=== PATIENT | female | born 1995 | race Caucasian/White ===

== ENCOUNTER → 2016-12-21 | Outpatient (CLI) | payer MEDICAID ==
--- NOTE | 2016-12-21 15:05 | REP ---
Sonography: History: Supervision of for anatomy. Findings: Scanning through the gravid uterus demonstrates a viable single intrauterine gestation in a cephalic lie. motion is observed and heart rate is recorded at 141 beats per minute. A posterior grade 0 placenta is seen without evidence of previa or abruption. Closed cervical length measured transabdominally is 4.1 cm. No extrauterine abnormalities observed. anatomic images of the face suggests the possibility of a cleft lip. Facial profile view is unremarkable. Right ventricular cardiac outflow tract was less than optimally seen due to position. The following additional anatomic structures are identified and felt to be sonographically unremarkable: cranium, choroid plexus, cavum, cerebellum and posterior fossa, lungs, four-chamber heart with left ventricular outflow tract view, diaphragm, left-sided stomach, abdominal wall cord insertion, three-vessel cord, kidneys and bladder, spine, upper and lower extremities. Biometry chart: BPD 4.7 cm = 20 weeks 1 day Head circumference 17.5 cm = 20 weeks 0 days Abdominal circumference 15.0 cm = 20 weeks 2 days Femur length 3.2 cm = 19 weeks 6 days Humeral length 3.1 cm = 20 weeks 1 day Cerebellar diameter 2.1 cm = 20 weeks 0 days HC/AC ratio normal 1.16. Cephalic index normal 0.74. Estimated weight 330 grams, 0 pounds 11 ounces, 55th percentile for 19 weeks 6 days. Impression: 1. Viable single intrauterine gestation at 19 weeks 6 days by today's composite criteria. LALITHA by today's sonography May 11, 2017. 2. Views of the face suggestive of an eccentric defect in the upper lip consistent with cleft lip deformity. Right ventricular outflow tract view was less than optimally seen due to lie. Signed by Adilson Ruiz MD 12/21/2016 04:18 P
== END ==
LOC: M SMT 13:06
PROVIDERS: ATTEND Advanced Practice Midwife
DX: O36.8920 Maternal care for other specified fetal problems, second trimester, not applicable or unspecified (principal); Z36 Encounter for antenatal screening of mother; Z3A.19 19 weeks gestation of pregnancy

== ENCOUNTER → 2017-02-08 | Outpatient (CLI) | payer MEDICAID ==
[~2017-02-08] MED LIST: PRENTAB9 PO; TUMS500C PO
--- NOTE | 2017-02-08 14:53 | REP ---
Clinical: Anatomical evaluation. Comparison: 12/21/2016 . Findings: Examination demonstrates a single live intrauterine in breech presentation. motion is identified by technologist. Placenta is noted posteriorly and grade one without evidence for placenta previa or abruption. Amniotic fluid volume is normal. Cervix measures 4.2 cm in length and appears closed. Nuchal cord cannot be excluded. Gestational age by first US 26 weeks 6 days with LALITHA 05/11/2017 . Gestational age by current measurements 26 weeks 5 days with LALITHA 05/12/2017 . FHR equals 153 beats per minute. Estimated weight 1067 grams ( 57th percentile). Anatomical assessment demonstrates normal structures including cranium, choroid plexus, cavum, cerebellum/posterior fossa, facial features, lungs, four-chamber heart/ventricular outflow tracts, diaphragm, stomach, cord insertion/three-vessel cord, kidneys/bladder, spine, and extremities. Impression: Single live intrauterine in breech presentation. Nuchal cord cannot be excluded. Appropriate interval growth noted. Anatomical assessment is complete and normal. Signed by Miguel Jaeger MD 02/08/2017 02:07 P
[2017-02-08 19:23] LABS: MEAN CORPUSCULAR HEMOGLOBIN 30.8 pg (27.0-33.0); MEAN CORPUSCULAR HGB CONC 35.1 g/dl (32.0-36.5); MEAN CORPUSCULAR VOLUME 87.6 fl (80.0-96.0); RED CELL DISTRIBUTION WIDTH 12.9 % (11.5-14.5); WHITE BLOOD COUNT 11.3 K/mm3 (4.0-10.0)
== END ==
LOC: M SMT 12:59
PROVIDERS: ATTEND Obstetrics & Gynecology
DX: O32.1XX0 Maternal care for breech presentation, not applicable or unspecified (principal); Z36 Encounter for antenatal screening of mother; Z3A.26 26 weeks gestation of pregnancy

== ENCOUNTER → 2017-02-15 | Outpatient (CLI) | payer MEDICAID | LOC: M LAB 08:00 | PROVIDERS: ATTEND Obstetrics & Gynecology | DX: Z34.82 Encounter for supervision of other normal pregnancy, second trimester (principal) ==

== ENCOUNTER → 2017-03-31 | Outpatient (CLI) | payer OTHER ==
[2017-03-31 11:07] LABS: MEAN CORPUSCULAR HEMOGLOBIN 28.9 pg (27.0-33.0); MEAN CORPUSCULAR HGB CONC 33.1 g/dl (32.0-36.5); MEAN CORPUSCULAR VOLUME 87.2 fl (80.0-96.0); PLATELET COUNT, AUTOMATED 255 10^3/uL (150-450); RED CELL DISTRIBUTION WIDTH 13.2 % (11.5-14.5); WHITE BLOOD COUNT 13.1 10^3/uL (4.0-10.0)
[2017-03-31 11:53] LABS: ALT/SGPT 12 U/L (12-78); AST/SGOT 6 U/L (15-37); BILIRUBIN,TOTAL 0.2 MG/DL (0.2-1.0); CREATININE FOR GFR 0.71 MG/DL (0.55-1.02); GLOMERULAR FILTRATION RATE > 60.0 (>60); URIC ACID 3.5 MG/DL (2.6-6.0)
[2017-03-31 12:33] LABS: CREATININE CLEARANCE, URINE 160.2 ML/MIN (75-115); CREATININE, SERUM 0.7 MG/DL (0.6-1.0)
== END ==
LOC: M LAB 10:31
PROVIDERS: ATTEND Advanced Practice Midwife
DX: O16.3 Unspecified maternal hypertension, third trimester (principal); Z3A.00 Weeks of gestation of pregnancy not specified

== ENCOUNTER → 2017-04-01 | Outpatient (REF) | payer OTHER | LOC: M LAB REF 13:07 | PROVIDERS: ATTEND Specialist | DX: O13.3 Gestational [pregnancy-induced] hypertension without significant proteinuria, third trimester (principal) ==

== ENCOUNTER 2017-04-20 21:27 | Outpatient (CLI) | payer OTHER ==
[~2017-04-20] VITALS: Ht 157.5 cm; Wt 84.0 kg
[2017-04-20 21:46] VITALS: BP 136/84
[2017-04-20] MEDS ORDERED: TUMS500C PO (21:54)
[2017-04-20] MEDS ORDERED: PRENTAB9 PO (21:54)
[2017-04-20 22:03] VITALS: BP 116/71
[2017-04-20 22:25] VITALS: BP 120/68
[2017-04-20 22:45] VITALS: BP 107/64
[2017-04-20 23:05] VITALS: BP 109/68
[2017-04-20 23:09] VITALS: BP 136/84
[2017-04-21 00:15] LABS: MEAN CORPUSCULAR HEMOGLOBIN 28.7 pg (27.0-33.0); PLATELET COUNT, AUTOMATED 288 10^3/uL (150-450); RED CELL DISTRIBUTION WIDTH 13.4 % (11.5-14.5); WHITE BLOOD COUNT 16.4 10^3/uL (4.0-10.0)
[2017-04-21 00:24] LABS: ALT/SGPT 13 U/L (12-78); AST/SGOT 9 U/L (7-37); BILIRUBIN,TOTAL 0.2 MG/DL (0.2-1.0); CREATININE FOR GFR 0.73 MG/DL (0.55-1.02); GLOMERULAR FILTRATION RATE > 60.0 (>60)
== END 2017-04-21 00:50 | disposition home or self-care (01) ==
LOC: M LDO 21:27
PROVIDERS: ATTEND Specialist
DX: O26.893 Other specified pregnancy related conditions, third trimester (principal); Z3A.36 36 weeks gestation of pregnancy; R55 Syncope and collapse; O14.03 Mild to moderate pre-eclampsia, third trimester; O13.3 Gestational [pregnancy-induced] hypertension without significant proteinuria, third trimester

== ENCOUNTER 2017-04-22 11:27 | Inpatient (IN) | payer OTHER ==
[~2017-04-22] VITALS: Ht 157.5 cm; Wt 82.2 kg
[2017-04-22] MEDS ORDERED: LACTATED RINGER'S 1000 ML IV STA (11:42)
[2017-04-22] MEDS: LR 1,000 ML IV SCH ×2 (11:42→13:30)
[2017-04-22 11:44] VITALS: BP 149/89
[2017-04-22 12:41] VITALS: BP 122/77
[2017-04-22] MEDS: miSOPROStol 50 MCG 1/2 TAB (S0191) PO SCH ×3 (13:38→22:05)
[2017-04-22 13:45] LABS: MEAN CORPUSCULAR HEMOGLOBIN 28.3 pg (27.0-33.0); MEAN CORPUSCULAR HGB CONC 33.1 g/dl (32.0-36.5); MEAN CORPUSCULAR VOLUME 85.6 fl (80.0-96.0); PLATELET COUNT, AUTOMATED 286 10^3/uL (150-450); RED CELL DISTRIBUTION WIDTH 13.4 % (11.5-14.5)
--- NOTE | 2017-04-22 13:58 | HPEPDOC ---
[facility] Medical History & Physical Date of Admission Apr 22, 2017 Other Provider Albino Attending Physician: Carey Montero CNM History and Physical HISTORY & PHYSICAL EXAMINATION DATE OF ADMISSION: 04/22/2017 21-year-old, 1, para 0, at 37-0/7 weeks gestation by first trimester ultrasound for an estimated date of delivery of 05/13/2017 presents for induction of labor at term due to preeclampsia. She denies contractions, bleeding, or loss of fluid, reports good activity. Upon evaluation, she is 1-2 cm, 50 % effaced, -3 station. She reports active movement. Denies loss of fluid or bleeding. Sono at 7 weeks 1 days confirmed her due date. Prepregnancy weight was 163. Total weight gain 24 pounds. She was diagnosed with preeclampsia at 33 weeks with elevated blood pressures and proteinuria. Last office visit was at 36 weeks 3 days on 04/18/2017. has been uncomplicated until the diagnosis of A1 diabetes and preeclampsia. Her blood sugars have been under excellent diet control. She has been seen twice weekly for nonstress tests. Anatomy scan within normal limits with the possibility of cleft lip. OB HISTORY: Nulliparous ALLERGIES: No known drug allergies. MEDICAL/SURGICAL HISTORY: Asthma FAMILY HISTORY: Diabetes, heart disease, hyperthyroidism and spina bifida. SOCIAL HISTORY: . Father of the baby is present and supportive. Denies alcohol, tobacco or drugs. No history sexually transmitted infections OBJECTIVE: Labs are A+, antibody negative. However, her initial blood typing performed. [facility] shows here as A negative; confirmatory testing was done at [facility]. Initial hemoglobin and hematocrit 14.7 and 41.5 with platelets of 243. Rubella nonimmune. VDRL, hepatitis B, hepatitis C, HIV, gonorrhea, chlamydia all negative. Genetic screening not performed. 1 hour GCT 152, 3 hour glucose was 96, 187, 176 and 143. Group B strep is negative. VITAL SIGNS: Stable. She is in no apparent distress, coping well. Breathing with contractions.. Abdomen is soft, gravid, nontender, longitudinal lie, vertex by Tylor. Contractions irregular. heart 145, moderate variability with accelerations, category 1 tracing. Sterile vaginal exam: 1-2 cm, 50 % effaced, -3 station, intact membranes and cephalic. ASSESSMENT: 21-year-old, 1, at 37 weeks 0 days gestation, for induction of labor due to preeclampsia and A1 gestational diabetes. Category 1 tracing. Rubella nonimmune PLAN: Admit per consultation Dr. Posada, who is aware of patient's status. She is considering an epidural. Anticipate normal spontaneous vaginal . Laboratory Data Labs 24H Laboratory Tests 2 04/22/17 11:34: Serology Scanned Report Hepatitis B Testing Home Medications Scheduled Multivitamins/ ( 27-0.8 mg) 1 Tab Tab, 1 TAB PO QHS Scheduled PRN Calcium Carbonate (Tums) 500 Mg Chw, 1,000 MG PO Q4HP PRN for HEARTBURN Allergies Coded Allergies: No Known Allergies (Unverified , 04/20/17) Carey Montero CNM Apr 22, 2017 13:40
[2017-04-22 14:04] LABS: ALT/SGPT 12 U/L (12-78); AST/SGOT 9 U/L (7-37); BILIRUBIN,TOTAL 0.2 MG/DL (0.2-1.0); CREATININE FOR GFR 0.61 MG/DL (0.55-1.02); GLOMERULAR FILTRATION RATE > 60.0 (>60); URIC ACID 4.2 MG/DL (2.6-6.0)
[2017-04-22 14:44] VITALS: BP 118/74
[2017-04-22 16:00] VITALS: BP 130/80
[2017-04-22 17:24] VITALS: BP 131/79
[2017-04-23] VITALS (16 sets, daily range): BP systolic 105–144; BP diastolic 55–83
[2017-04-23] MEDS ORDERED: LR 1,000 ML IV SCH (01:13)
[2017-04-23] MEDS ORDERED: BUTORPHANOL 2 MG/ML INJ (J0595) IV ONE (01:15)
[2017-04-23] MEDS ORDERED: PROMETHAZINE INJ 25 MG/ML VIAL (J2550) IV ONE (01:15)
[2017-04-23] MEDS ORDERED: OXYTOCIN DRIP 30 UNITS in APPROPRIATE DILUENT 1 EA IV SCH (01:15)
--- NOTE | 2017-04-23 01:17 | IPNPDOC ---
Text Note Date of Service The patient was seen on 04/23/17. NOTE Feeling more uncomfortable. UC irregular FH 135 moderate variability, + accels SVE 3-4/80/-1, presenting part well applied Stadol/phenergan for now. Pt desires epidural once pitocin starts Anticipate NSVB VS,Fishbone, I+O VS, Fishbone, I+O Laboratory Tests 04/22/17 13:26 Red Blood Count 3.74 L, Mean Corpuscular Volume 85.6, Mean Corpuscular Hemoglobin 28.3, Mean Corpuscular Hemoglobin Concent 33.1, Red Cell Distribution Width 13.4, Aspartate Amino Transf (AST/SGOT) 9, Alanine Aminotransferase (ALT/SGPT) 12, Lactate Dehydrogenase 160, Total Bilirubin 0.2, Uric Acid 4.2 Vital Signs Date Time Temp Pulse Resp B/P (MAP) Pulse Ox O2 Delivery O2 Flow Rate FiO2 04/22/17 17:24 98.3 20 131/79 (96) 04/22/17 16:00 108 Carey Montero CNM Apr 23, 2017 01:17
--- NOTE | 2017-04-23 07:36 | IPNPDOC ---
Text Note Date of Service The patient was seen on 04/23/17. NOTE Progress Has slept with stadol/phenergan Pitocin @ 10mu. UC Q 2 minutes x 45-60 seconds FH 145, minimal/moderate variabiltiy, + accels SVE 3-4/80/-1 Pt becoming more uncomfortable. Consider AROM and epidural VS,Fishbone, I+O VS, Fishbone, I+O Laboratory Tests 04/22/17 13:26 Red Blood Count 3.74 L, Mean Corpuscular Volume 85.6, Mean Corpuscular Hemoglobin 28.3, Mean Corpuscular Hemoglobin Concent 33.1, Red Cell Distribution Width 13.4, Aspartate Amino Transf (AST/SGOT) 9, Alanine Aminotransferase (ALT/SGPT) 12, Lactate Dehydrogenase 160, Total Bilirubin 0.2, Uric Acid 4.2 Vital Signs Date Time Temp Pulse Resp B/P (MAP) Pulse Ox O2 Delivery O2 Flow Rate FiO2 04/23/17 01:40 18 04/22/17 17:24 98.3 131/79 (96) 04/22/17 16:00 108 I&O- Last 24 Hours up to 6 AM 04/24/17 06:00 Intake Total 125 ml Balance 125 ml Carey Montero CNM Apr 23, 2017 07:36
[2017-04-23] MEDS: LR 1,000 ML IV SCH (07:52)
[2017-04-23] MEDS ORDERED: FENTANYL 2MCG/ML ROPIVACAINE 0.2% IN 0.9% NACL 200ML IVBAG As Ordered ONE (08:01)
[2017-04-23] MEDS ORDERED: REFRIGERATOR IV KEYS XX PRN (10:00)
[2017-04-23] MEDS ORDERED: LACTATED RINGER'S 1000 ML IV PRN (10:00)
[2017-04-23] MEDS ORDERED: NALOXONE INJ 0.4 MG/1 ML VIAL (J2310) IV PRN (10:00)
[2017-04-23] MEDS ORDERED: EPIDURAL COMMENT XX SCH (10:00)
[2017-04-23] MEDS ORDERED: diphenhydrAMINE INJ 50MG/ML VIAL (J1200) IV PRN (10:00)
[2017-04-23] MEDS ORDERED: ONDANSETRON 4MG/2ML VIAL (J2405) IV PRN (10:00)
[2017-04-23] MEDS ORDERED: ePHEDrine SULFATE 25 MG/5 ML(5MG/ML) SYRINGE IV PRN (10:00)
[2017-04-23] MEDS ORDERED: EPIDURAL/PCA KEYS XX PRN (10:00)
[2017-04-23] MEDS ORDERED: FENTANYL/ROPIVACAINE/NACL BAG 200 ML EPIDURAL SCH (10:00)
[2017-04-23] MEDS ORDERED: RHOGAM 300 MCG (1500 IU) INJ (J2790) IM SCH (15:45)
[2017-04-23] MEDS ORDERED: DIBUCAINE 1% OINTMENT 30GM TOP PRN (15:45)
[2017-04-23] MEDS ORDERED: DOCUSATE SODIUM 100 MG CAP PO PRN (15:45)
[2017-04-23] MEDS ORDERED: ACETAMINOPHEN 500 MG TAB PO PRN (15:45)
[2017-04-23] MEDS ORDERED: MEASLES,MUMPS,RUBELLA VACCINE INJ (MMR-II) (90707) SC SCH (15:45)
[2017-04-24 05:49] VITALS: BP 116/61
[2017-04-24 06:36] LABS: MEAN CORPUSCULAR HEMOGLOBIN 28.4 pg (27.0-33.0); MEAN CORPUSCULAR VOLUME 86.2 fl (80.0-96.0); PLATELET COUNT, AUTOMATED 240 10^3/uL (150-450); RED CELL DISTRIBUTION WIDTH 13.3 % (11.5-14.5); WHITE BLOOD COUNT 18.6 10^3/uL (4.0-10.0)
[2017-04-24 06:56] LABS: ALT/SGPT 10 U/L (12-78); AST/SGOT 11 U/L (7-37); BILIRUBIN,TOTAL 0.2 MG/DL (0.2-1.0); CREATININE FOR GFR 0.63 MG/DL (0.55-1.02); GLOMERULAR FILTRATION RATE > 60.0 (>60); URIC ACID 4.2 MG/DL (2.6-6.0)
[2017-04-24] MEDS: PRENATAL VITAMINS CHEWABLE TABLET PO SCH (08:23)
[2017-04-24] MEDS: IBUPROFEN 600 MG TAB PO PRN ×2 (08:24→14:49)
[2017-04-24 18:00] VITALS: BP 117/65
[2017-04-25 06:00] VITALS: BP 125/68
[2017-04-25] MEDS ORDERED: ACET50TA PO (08:26)
[2017-04-25] MEDS ORDERED: IBUP-1114 PO (08:27)
[2017-04-25] MEDS: PRENATAL VITAMINS CHEWABLE TABLET PO SCH (09:10)
[2017-04-25] MEDS: IBUPROFEN 600 MG TAB PO PRN (09:19)
== END 2017-04-25 11:25 | disposition home or self-care (01) | DRG 560 ==
LOC: M LDI 11:27 → M OBS 04-23 16:47
PROVIDERS: ADMIT Obstetrics & Gynecology; ATTEND Advanced Practice Midwife
PROC: 3E0P7GC Introduction of Other Therapeutic Substance into Female Reproductive, Via Natural or Artificial Opening (ICD-10-PCS; 2017-04-22)
PROC: 10E0XZZ Delivery of Products of Conception, External Approach (ICD-10-PCS; principal; 2017-04-23)
PROC: 0HQ9XZZ Repair Perineum Skin, External Approach (ICD-10-PCS; 2017-04-23)
DX: O14.94 Unspecified pre-eclampsia, complicating childbirth (principal); Z3A.37 37 weeks gestation of pregnancy; O24.420 Gestational diabetes mellitus in childbirth, diet controlled; O70.0 First degree perineal laceration during delivery; Z37.0 Single live birth

== ENCOUNTER → 2018-04-22 | Outpatient (CLI) | payer OTHER | LOC: M LRY 11:13 | DX: M25.472 Effusion, left ankle (principal); M79.89 Other specified soft tissue disorders | CPT/HCPCS: 73610 ==

== ENCOUNTER → 2019-11-11 | Outpatient (REF) | payer OTHER ==
[~2019-11-11] MED LIST changes: +IBUP-1114 PO; +MAPA500T2 PO
== END ==
LOC: M PLALAB 11:22
PROVIDERS: ATTEND Advanced Practice Midwife
DX: Z34.82 Encounter for supervision of other normal pregnancy, second trimester (principal)

== ENCOUNTER → 2019-11-17 | Outpatient (CLI) | payer OTHER ==
--- NOTE | 2019-11-18 23:37 | REP ---
REASON: anatomy. Multiple ultrasonographic images of the gravid uterus show a single living intrauterine gestation in variable positions. Doppler interrogation of the heart shows a heart rate of 143 beats per minute. The placenta is posterior and not low lying. The subjective amniotic fluid volume is within normal limits. Cervix measures 3.9 cm in length and is closed. Evaluation of the maternal adnexal spaces showed no abnormalities. Incidental note is made of a 1.5 cm sized uterine fibroid. CHART: BPD 3.7 cm = 17 weeks 3 days HC 14.8 cm = 17 weeks 6 days AC 13.0 cm = 18 weeks 4 days FL 2.7 cm = 18 weeks 1 day The estimated weight is 231 grams, which is at the 60th percentile for a 17-week 6-day gestational age. anatomical structures seen as unremarkable are as follows: Cavum septum pellucidum, cerebellum, cisterna magna, posterior fossa, upper lip, four-chamber heart, right and left ventricular outflow tracts, stomach, cord insertion, three-vessel umbilical cord, kidneys, urinary bladder, spine, and upper and lower extremities. The cranium had a slight lemon shape appearance. IMPRESSION: Single living intrauterine gestation, as described above, with an estimated gestational age of 17 weeks 6 days via composite criteria and an estimated date of delivery of 04/20/2020. Followup examination is recommended to further evaluate what the technologist has imaged and described as a slight lemon shape to the skull. This may have genetic ramifications. Needs to be correlated clinically with appropriate followup.
== END ==
LOC: M WHC 10:59
PROVIDERS: ATTEND Advanced Practice Midwife
DX: Z36.89 Encounter for other specified antenatal screening (principal); O09.292 Supervision of pregnancy with other poor reproductive or obstetric history, second trimester; Z3A.17 17 weeks gestation of pregnancy

== ENCOUNTER → 2019-12-09 | Outpatient (CLI) | payer OTHER | LOC: M PLALAB 09:31 | PROVIDERS: ATTEND Advanced Practice Midwife | DX: Z13.79 Encounter for other screening for genetic and chromosomal anomalies (principal) ==

== ENCOUNTER → 2019-12-17 | Outpatient (CLI) | payer OTHER ==
[~2019-12-17] MED LIST changes: +ACET-683 PO; +IBUP80TA PO
--- NOTE | 2019-12-17 12:30 | REP ---
REASON FOR EXAM: Followup. COMPARISON: 11/17/2019 The prior examination suggests a slight lemon-shaped cranium. Multiple ultrasonographic images of the gravid uterus shows a single living intrauterine gestation in the breech presentation. Doppler interrogation of the heart shows a heart rate of 152 per minute. The placenta is posterior and not low lying. The cervix measures 2.8 cm in length and is closed. The subjective amniotic fluid volume is within normal limits. Evaluation of the skull again shows a slight lemon-shaped appearance. BPD 5.0 cm = 21 weeks 2 days HC 19.7 cm = 21 weeks 6 days AC 18.7 cm = 23 weeks 3 days FL 3.9 cm = 22 weeks 3 days The estimated weight is 539 grams which is at the 66th percentile for a 70-mjmb-5-day gestational age. IMPRESSION: Single living intrauterine gestation as described above with an estimated gestational age of 22 weeks 0 days via composite criteria and estimated date of delivery at 04/21/2020 by today's exam. There is persistence of the slightly lemon-shaped cranium. This needs to be correlated clinically as there are potential ramifications to this persistent finding. Considerations for producing this are as follows but not limited to: 1. Cranial synostosis. 2. Chiari malformation. 3. Normal variant.
== END ==
LOC: M WHC 09:19
PROVIDERS: ATTEND Advanced Practice Midwife
DX: O28.3 Abnormal ultrasonic finding on antenatal screening of mother (principal); Z3A.23 23 weeks gestation of pregnancy

== ENCOUNTER → 2020-01-13 | Outpatient (REF) | payer OTHER ==
[2020-02-11 09:27] LABS: HEMATOCRIT 35.8 % (36.0-47.0); HEMOGLOBIN 11.7 g/dl (12.0-15.5); MEAN CORPUSCULAR HEMOGLOBIN 29.4 pg (27.0-33.0); MEAN CORPUSCULAR HGB CONC 32.7 g/dl (32.0-36.5); MEAN CORPUSCULAR VOLUME 89.9 fl (80.0-96.0); PLATELET COUNT, AUTOMATED 215 10^3/uL (150-450); RED BLOOD COUNT 3.98 10^6/uL (4.00-5.40); WHITE BLOOD COUNT 9.4 10^3/uL (4.0-10.0)
[2020-02-27 17:05] LABS: ALT/SGPT 12 U/L (12-78); BILIRUBIN,TOTAL 0.1 MG/DL (0.2-1.0); CREATININE FOR GFR 0.58 MG/DL (0.55-1.30); GLOMERULAR FILTRATION RATE > 60.0 (>60); GLUCOSE CHALLENGE TEST 1 HOUR 146 MG/DL (LESS THAN 140); LDH LACTATE DEHYDROGENASE 145 U/L (84-246); URIC ACID 2.8 MG/DL (2.6-6.0)
[2020-02-27 17:12] LABS: CREATININE,RANDOM URINE 33.2 MG/DL; TOTAL PROTEIN,RANDOM URINE 12.6 MG/DL (0.0-12.0)
== END ==
LOC: M SFHCWAGY 06:35
PROVIDERS: ATTEND Advanced Practice Midwife
DX: O09.292 Supervision of pregnancy with other poor reproductive or obstetric history, second trimester (principal)

== ENCOUNTER → 2020-03-17 | Outpatient (REF) | payer OTHER ==
[~2020-03-17] MED LIST changes: -ACET-683 PO; -IBUP80TA PO
== END ==
LOC: M SFHCWAGY 16:54
PROVIDERS: ATTEND Obstetrics & Gynecology
DX: Z34.93 Encounter for supervision of normal pregnancy, unspecified, third trimester (principal)

== ENCOUNTER 2020-04-08 14:37 | Inpatient (IN) | payer OTHER ==
[2020-04-07] MEDS: LR 1,000 ML IV SCH (21:49)
[~2020-04-08] VITALS: Ht 157.5 cm; Wt 83.4 kg
[2020-04-08] VITALS (16 sets, daily range): BP systolic 103–140; BP diastolic 55–83
[2020-04-08 15:18] LABS: HEMATOCRIT 32.5 % (36.0-47.0); HEMOGLOBIN 10.6 g/dl (12.0-15.5); MEAN CORPUSCULAR HGB CONC 32.6 g/dl (32.0-36.5); MEAN CORPUSCULAR VOLUME 82.9 fl (80.0-96.0); PLATELET COUNT, AUTOMATED 233 10^3/uL (150-450); RED BLOOD COUNT 3.92 10^6/uL (4.00-5.40); WHITE BLOOD COUNT 11.8 10^3/uL (4.0-10.0)
[2020-04-08] MEDS ORDERED: miSOPROStol 50 MCG 1/2 TAB (S0191) PO ONE (16:30)
--- NOTE | 2020-04-08 17:06 | HPEPDOC ---
Obstetrical History & Physical General Date of Admission Apr 08, 2020 at 14:37 Primary Care Physician: BIJAN LOPEZ CNM History of Present Illness Baylee is a 24-year-old female who is a at 39.3 weeks gestation with an LALITHA of 04/12/20 based off of her LMP and consistent with her first trimester u ltrasound. She initiated care in her first trimester of . Her has been complicated by A1GDM (elevated 1 hour testing and declined 3 hour-did continuous testing). Her last was complicated by A1GDM and preeclampsia. She had an abnormal second trimester ultrasound showing a lemon shaped cranium. NIPT and MSAFP were negative. Declined amniocentesis. She presents to L&D for an elective induction of labor. She reports occasional contractions and active movement. She denies vaginal bleeding or leaking of fluid. Information Provided By: Patient Age: 24 : 2 Term: 1 Pre-term: 0 Abortions: 0 Livin Care Care: Good Care Dating Final EDC: Apr 12, 2020 Final EDC by: LMP LMP: Jul 07, 2019 EGA at Admission: 39.3 Antepartum Course Diagnos(e)s A1GDM Height (inches): 62 Pre- weight (lbs.): 165 Admission Weight (lbs.): 183 Change in Weight (lbs.): 18 Past Medical History Past Obstetrical History : Past Obstetrical History: Primgravida Date of Delivery: Apr 23, 2017 Gestation: 37 Type of Delivery: Spontaneous Vaginal Del. Sex of : Male (6 lbs 13 oz) Complications: Yes (preeclampsia and A1GDM) Past Medical History Medical History depression Gestational diabetes Surgical History: Other (oral surgery) Family History Significant Family History: Asthma, Diabetes, Heart disease, Hypertension Social History Marital Status: Family situation: Spouse/partner home Psychosocial History: Depression * Smoker: non-smoker Alcohol: Denies Drugs: denies Allergies Coded Allergies: No Known Allergies (Unverified , 04/20/17) Medications Scheduled No.137/Iron/Folic Acd ( Vitamin Tablet) 1 Tab Tab, 1 TAB PO QHS Scheduled PRN Calcium Carbonate (Tums) 500 Mg Chw, 1,000 MG PO Q4HP PRN for HEARTBURN Physical Examination Physical Examination GENERAL: Alert and oriented times three. ABDOMEN: Gravid and non-tender to touch. FETUS: Is vertex (VTX) by sterile vaginal examination (SVE), fetus is vertex (VTX) by Tylor. EFW 7 lbs. LUNGS: Clear to auscultation (CTA). EXTREMITIES: Generalized edema. No clonus. Deep tendon reflexes (DTRs) + 1. Vital Signs/I&O Vital Signs Date Time Temp Pulse Resp B/P (MAP) Pulse Ox O2 Delivery O2 Flow Rate FiO2 04/08/20 14:58 83 18 111/62 (78) Laboratory Data 24H LABS Laboratory Tests 2 04/08/20 14:55: Nucleated Red Blood Cells % (auto) 0.0, Syphilis Serology NONREACTIVE CBC/BMP Laboratory Tests 04/08/20 14:55 Pertinent Laboratoy Data Blood Type: A+ RBC Antibody Screen: Negative HIV: Negative Hepatitis B: Negative Hepatitis C: Negative Rapid Plasma Reagin: Nonreactive Rubella: Immune Chlamydia/Gonorrhea: Negative Group B Streptococcus: Negative Quad Screen Test: Negative Diag/Inter Therapy NIPT low risk normal female Vaginal Examination Dilation: 3 cm Effacement: 60% Station: -2 Cervical Consistency: Soft Cervical Position: Middle Presentation: Cephalic presentation Position: Vertex (occiput) Assessment Heart Rate (FHR): 140 Variability: Moderate Accelerations: Positive Decelerations: None Tocometer Contractions: Yes Frequency: irregular Assessment/Plan Assessment IUP at 39.3 weeks gestation A1GDM GBS negative Category I FHR tracing induction of labor Plan Admit to L&D. Counseled on methods of induction including Cytotec, dykes bulb and IV Pitocin. Diet: regular now then clears once IV Pitocin has been started. . Group B Streptococcus (GBS) negative. Labs and intravenous (IV) per unit protocol. Anesthesia consult per patient's request. Lactated Ringers (LR): Bolus 500 mL prior to epidural, then at 125 mL/hr. Anticipate cervical ripening and cervical change. C-S as appropriate. BIJAN LOPEZ CNM Apr 08, 2020 17:06
[2020-04-08] MEDS ORDERED: ACETAMINOPHEN 500 MG TAB PO PRN (19:30)
[2020-04-08] MEDS ORDERED: OXYTOCIN DRIP 30 UNITS in IV 1 EA IV SCH (20:30)
[2020-04-08] MEDS: LACTATED RINGER'S 1000 ML IV PRN ×2 (20:42→22:47)
[2020-04-08] MEDS ORDERED: FENTANYL 2MCG/ML ROPIVACAINE 0.2% IN 0.9% NACL 100ML IVBAG As Ordered ONE (22:52)
[2020-04-08] MEDS: FENTANYL/ROPIVACAINE/NACL BAG 100 ML EPIDURAL SCH (23:35)
[2020-04-08] MEDS ORDERED: NALOXONE INJ 0.4MG/1ML VIAL (J2310 PER 1MG) IV PRN (23:38)
[2020-04-08] MEDS ORDERED: EPIDURAL COMMENT XX SCH (23:38)
[2020-04-08] MEDS ORDERED: ePHEDrine SULFATE 25 MG/5 ML(5MG/ML) SYRINGE IV PRN (23:38)
[2020-04-08] MEDS ORDERED: EPIDURAL/PCA KEYS XX PRN (23:38)
[2020-04-08] MEDS ORDERED: diphenhydrAMINE 50MG/ML VIAL (J1200) IV PRN (23:38)
[2020-04-08] MEDS ORDERED: REFRIGERATOR IV KEYS XX PRN (23:38)
[2020-04-08] MEDS ORDERED: ONDANSETRON 4MG/2ML VIAL IV PRN (23:38)
[2020-04-09] VITALS (52 sets, daily range): BP systolic 80–128; BP diastolic 44–77
[2020-04-09] MEDS ORDERED: ePHEDrine SULFATE 25 MG/5 ML(5MG/ML) SYRINGE As Ordered ONE (00:27)
[2020-04-09] MEDS: LR 1,000 ML IV SCH ×2 (00:34→06:50)
--- NOTE | 2020-04-09 01:47 | IPNPDOC ---
Obstetrical Progress Note Date of Service Apr 09, 2020 Subjective Patient reports she is comfortable with her epidural. Objective Vital signs: BP 86/48 with repeat of 126/67 Assessment Heart Rate (FHR): 140 Variability: Moderate Accelerations: Positive Decelerations: None Heart Rate Tracing: Category I Tocometer Contractions: Yes Frequency: other (2-6 minutes) Sterile Vaginal Examination Dilation: 4 cm (4-5 cm) Effacement (%): other (75%) Station: -1 Cervical Consistency: Soft Cervical Position: Anterior Postion/Presentation: Cephalic presentation Assessment and Plan Age: 24 : 2 Term: 1 Pre-term: 0 Abortions: 0 Livin EGA at Admission: 39.3 Status: Reassuring Group B Streptococcus: Negative Anticipate: Vaginal Delivery Additional Comments IV Pitocin is at 4 mu/min. Continue with IV Pitocin for induction. BIJAN LOPEZ CNM Apr 09, 2020 01:47
--- NOTE | 2020-04-09 08:22 | IPNPDOC ---
Obstetrical Progress Note Date of Service Apr 09, 2020 Subjective comfortable with epidural Objective Vital Signs Date Time Temp Pulse Resp B/P (MAP) Pulse Ox O2 Delivery O2 Flow Rate FiO2 04/09/20 05:32 73 18 84/50 (61) 04/09/20 05:17 97.6 Assessment Variability: Moderate Accelerations: Positive Decelerations: None Heart Rate Tracing: Category I Tocometer Contractions: Yes Frequency: regular, every 1-3 min. Strength: palpated as strong Sterile Vaginal Examination Dilation: 5 cm Effacement (%): 70% Station: -2 Cervical Consistency: Medium Cervical Position: Middle Postion/Presentation: Cephalic presentation Assessment and Plan Age: 24 : 2 Term: 1 Additional Comments 24 yo female at 39 4/7 with A1GDM, labor induction AROM performed for clear fluid Pitocin at 10 mu/min MD GUILLERMO [place] JOHN P. MD Apr 09, 2020 08:22
[2020-04-09] MEDS: FENTANYL/ROPIVACAINE/NACL BAG 100 ML EPIDURAL SCH (08:25)
[2020-04-09] MEDS ORDERED: ACETAMINOPHEN TAB 650MG DOSE (2X325MG) PO PRN (10:00)
[2020-04-09] MEDS ORDERED: METHYLERGONOVINE MALEATE 0.2 MG TAB PO PRN (10:00)
[2020-04-09] MEDS ORDERED: OXYTOCIN DRIP 30 UNITS in IV 1 EA IV ONE (10:00)
[2020-04-09] MEDS ORDERED: MEASLES,MUMPS,RUBELLA VACCINE INJ (MMR-II) (90707) SC SCH (10:00)
[2020-04-09] MEDS ORDERED: RHOGAM 300 MCG (1500 IU) INJ (J2790) IM SCH (10:00)
[2020-04-09] MEDS ORDERED: IBUPROFEN 600MG TAB PO PRN (10:00)
[2020-04-09] MEDS ORDERED: DIBUCAINE 1% OINTMENT 30GM TOP PRN (10:00)
--- NOTE | 2020-04-09 10:39 | DNPDOC ---
[facility] Delivery Note Delivery Note DATE OF DELIVERY: April 09, 2020 PREDELIVERY DIAGNOSIS: 39-0/7 weeks' gestation, Class A1 GDM, induction. POST DELIVERY DIAGNOSIS: Delivered. PROCEDURE: Spontaneous vaginal delivery. INCIDENT RESPONSE LEAD: Dr. Dee Li MD ANESTHESIA: Epidural. ESTIMATED BLOOD LOSS: 300 mL. FINDINGS: 7 pound 14 ounce female , Score 8/9, nuchal cord times 1. DELIVERY SUMMARY: Patient is a 24 -year-old 2 now para 2 who was admitted to labor and delivery for labor induction at 39 weeks gestation. After at 15 minute second stage of labor she had a spontaneous vaginal delivery of a 7# 14 oz. female . Nuchal cord x 1 reduced manually. Shoulders delivered with ease. Infant cried quickly and was handed to the mother. Cord doubly clamped and cut. Placenta delivered spontaneously and appeared intact. First degree left vaginal sulcus laceration repaired with 2-O Chromic. Sponge and needle counts correct. DEE LI MD Apr 09, 2020 10:39
[2020-04-09] MEDS: ACETAMINOPHEN 500 MG TAB PO PRN ×2 (11:19→18:14)
[2020-04-09 17:58] LABS: HEP C VIRUS AB INDEX SOURCE PT 0.1 INDEX (0.0-0.8)
[2020-04-09] MEDS: IBUPROFEN 800 MG TAB PO PRN (20:31)
[2020-04-10 05:55] VITALS: BP 132/87
[2020-04-10] MEDS: DOCUSATE SODIUM 100 MG CAP PO PRN (08:52)
[2020-04-10] MEDS: IBUPROFEN 800 MG TAB PO PRN ×2 (08:52→19:14)
[2020-04-10] MEDS: PRENATAL VITAMINS CHEWABLE TABLET PO SCH (08:52)
[2020-04-10 17:44] VITALS: BP 130/83
[2020-04-11 06:00] VITALS: BP 136/86
[2020-04-11] MEDS ORDERED: ACET-683 PO (07:44)
[2020-04-11] MEDS ORDERED: IBUP80TA PO (07:44)
[2020-04-11] MEDS: PRENATAL VITAMINS CHEWABLE TABLET PO SCH (09:02)
[2020-04-11] MEDS: DOCUSATE SODIUM 100 MG CAP PO PRN (09:04)
== END 2020-04-11 14:40 | disposition home or self-care (01) | DRG 560 ==
LOC: M LDI 14:37 → M OBS 04-09 12:16
PROVIDERS: ADMIT Advanced Practice Midwife; ATTEND Specialist
PROC: 3E0P7GC Introduction of Other Therapeutic Substance into Female Reproductive, Via Natural or Artificial Opening (ICD-10-PCS; 2020-04-08)
PROC: 10E0XZZ Delivery of Products of Conception, External Approach (ICD-10-PCS; principal; 2020-04-09)
PROC: 0HQ9XZZ Repair Perineum Skin, External Approach (ICD-10-PCS; 2020-04-09)
PROC: 10907ZC Drainage of Amniotic Fluid, Therapeutic from Products of Conception, Via Natural or Artificial Opening (ICD-10-PCS; 2020-04-09)
DX: O24.420 Gestational diabetes mellitus in childbirth, diet controlled (principal); Z3A.39 39 weeks gestation of pregnancy; O69.81X0 Labor and delivery complicated by cord around neck, without compression, not applicable or unspecified; O70.0 First degree perineal laceration during delivery; Z37.0 Single live birth

== ENCOUNTER → 2021-09-04 | Outpatient (CLI) | payer OTHER ==
[~2021-09-04] MED LIST changes: +ACET-683 PO; +IBUP80TA PO
== END ==
LOC: M WHC 12:30
PROVIDERS: ATTEND Advanced Practice Midwife
DX: O09.292 Supervision of pregnancy with other poor reproductive or obstetric history, second trimester (principal); Z36.2 Encounter for other antenatal screening follow-up; Z3A.22 22 weeks gestation of pregnancy

== ENCOUNTER → 2021-10-13 | Outpatient (CLI) | payer OTHER | LOC: M PLALAB 13:41 | PROVIDERS: ATTEND Obstetrics & Gynecology | DX: Z34.92 Encounter for supervision of normal pregnancy, unspecified, second trimester (principal); Z3A.25 25 weeks gestation of pregnancy ==

== ENCOUNTER → 2021-12-14 | Outpatient (REF) | payer OTHER | LOC: M SFHCWAGY 16:46 | PROVIDERS: ATTEND Specialist | DX: Z34.83 Encounter for supervision of other normal pregnancy, third trimester (principal) ==

== ENCOUNTER 2021-12-29 08:58 | Inpatient (IN) | payer OTHER ==
[~2021-12-29] VITALS: Ht 157.5 cm; Wt 83.4 kg
[2021-12-29] VITALS (39 sets, daily range): BP systolic 99–157; BP diastolic 54–90
[2021-12-29] MEDS ORDERED: ZOLO25TA PO (09:53)
[2021-12-29] MEDS ORDERED: HOME MED LIST COMPLETE! XX SCH (09:55)
[2021-12-29] MEDS ORDERED: LACTATED RINGER'S 1000 ML IV STA (10:26)
[2021-12-29] MEDS ORDERED: CARBOPROST TROMETHAMINE 250 MCG/ML AMP IM PRN (10:30)
[2021-12-29] MEDS ORDERED: LIDOCAINE 1% MDV 20ML VIAL INFIL PRN (10:30)
[2021-12-29] MEDS ORDERED: TRANEXAMIC ACID INJection 1,000 MG in NS 100 ML IV PRN (10:30)
[2021-12-29] MEDS ORDERED: OXYTOCIN DRIP 30 UNITS in IV 1 EA IV PRN (10:30)
[2021-12-29] MEDS ORDERED: METHYLERGONOVINE MALEATE 0.2 MG/ML VIAL (J2210) IM PRN (10:30)
[2021-12-29] MEDS ORDERED: OXYTOCIN INJ 10 UNITS/ML VIAL (J2590) IM PRN (10:30)
[2021-12-29 10:39] LABS: HEMATOCRIT 31.2 % (36.0-47.0); HEMOGLOBIN 9.8 g/dl (12.0-15.5); MEAN CORPUSCULAR HEMOGLOBIN 25.1 pg (27.0-33.0); MEAN CORPUSCULAR HGB CONC 31.4 g/dl (32.0-36.5); PLATELET COUNT, AUTOMATED 238 10^3/uL (150-450); WHITE BLOOD COUNT 10.4 10^3/uL (4.0-10.0)
[2021-12-29] MEDS ORDERED: LR 1,000 ML IV SCH (11:40)
[2021-12-29] MEDS: OXYTOCIN DRIP 30 UNITS in IV 1 EA IV SCH ×2 (12:00→21:53)
[2021-12-29] MEDS ORDERED: ONDANSETRON 4MG 2ML VIAL IV PRN (15:40)
[2021-12-29] MEDS ORDERED: FENTANYL/ROPIVACAINE/NACL BAG 100 ML EPIDURAL SCH (15:40)
[2021-12-29] MEDS ORDERED: LR 500 ML IV PRN (15:40)
[2021-12-29] MEDS ORDERED: ePHEDrine SULFATE 25 MG/5 ML(5MG/ML) SYRINGE IVP PRN (15:40)
[2021-12-29] MEDS ORDERED: NALOXONE INJ 0.4MG/1ML VIAL (J2310 PER 1MG) IV PRN (15:40)
[2021-12-29] MEDS ORDERED: EPIDURAL/PCA KEYS XX PRN (15:40)
[2021-12-29] MEDS ORDERED: diphenhydrAMINE 50MG/ML VIAL (J1200) IV PRN (15:40)
[2021-12-29] MEDS ORDERED: FENTANYL 2MCG/ML ROPIVACAINE 0.2% IN 0.9% NACL 100ML IVBAG As Ordered ONE (15:43)
[2021-12-29] MEDS ORDERED: DOCUSATE SODIUM 100MG CAPSULE PO PRN (20:10)
[2021-12-29] MEDS ORDERED: DIBUCAINE 1% OINTMENT 30GM TOP PRN (20:10)
[2021-12-29] MEDS ORDERED: ACETAMINOPHEN 500 MG TAB PO PRN (20:10)
[2021-12-29] MEDS ORDERED: IBUPROFEN 600MG TAB PO PRN (20:10)
[2021-12-29] MEDS ORDERED: ACETAMINOPHEN TAB 650MG DOSE (2X325MG) PO PRN (20:10)
[2021-12-29] MEDS ORDERED: ANUSOL HC CREAM 30GM TOP PRN (20:10)
[2021-12-29] MEDS ORDERED: MOM 30ML SUSPENSION UDC PO PRN (20:10)
[2021-12-29] MEDS ORDERED: RHOGAM 300 MCG (1500 IU) INJ (J2790) IM SCH (20:10)
[2021-12-30 06:03] VITALS: BP 112/57
[2021-12-30] MEDS: IBUPROFEN 800 MG TAB PO PRN (08:58)
[2021-12-30] MEDS: PRENATAL VITAMINS CHEWABLE TABLET PO SCH (09:26)
[2021-12-30] MEDS: SERTRALINE HCL 25 MG TABLET PO SCH (09:27)
[2021-12-30 18:00] VITALS: BP 123/63
[2021-12-31 05:55] VITALS: BP 129/64
[2021-12-31] MEDS: SERTRALINE HCL 25 MG TABLET PO SCH (07:47)
[2021-12-31] MEDS: IBUPROFEN 800 MG TAB PO PRN (07:47)
[2021-12-31] MEDS: PRENATAL VITAMINS CHEWABLE TABLET PO SCH (07:47)
[2021-12-31] MEDS ORDERED: MEASLES,MUMPS,RUBELLA VACCINE INJ (MMR-II) (90707) SC.IMMUN ONE (09:00)
== END 2021-12-31 11:35 | disposition home or self-care (01) | DRG 560 ==
LOC: M LDI 08:58 → M OBS 21:29
PROVIDERS: ADMIT Advanced Practice Midwife; ATTEND Advanced Practice Midwife
PROC: 10E0XZZ Delivery of Products of Conception, External Approach (ICD-10-PCS; principal; 2021-12-29)
PROC: 10907ZC Drainage of Amniotic Fluid, Therapeutic from Products of Conception, Via Natural or Artificial Opening (ICD-10-PCS; 2021-12-29)
PROC: 3E033VJ Introduction of Other Hormone into Peripheral Vein, Percutaneous Approach (ICD-10-PCS; 2021-12-29)
DX: O99.344 Other mental disorders complicating childbirth (principal); F32.A Depression, unspecified; Z3A.39 39 weeks gestation of pregnancy; Z37.0 Single live birth; O69.81X0 Labor and delivery complicated by cord around neck, without compression, not applicable or unspecified; F41.9 Anxiety disorder, unspecified

== ENCOUNTER → 2023-09-17 | Outpatient (CLI) | payer OTHER ==
[~2023-09-17] MED LIST changes: +ZOLO25TA PO
[2023-09-17 17:29] LABS: HEMATOCRIT 40.7 % (36.0-47.0); HEMOGLOBIN 13.5 g/dl (12.0-15.5); MEAN CORPUSCULAR HEMOGLOBIN 27.7 pg (27.0-33.0); MEAN CORPUSCULAR HGB CONC 33.2 g/dl (32.0-36.5); MEAN CORPUSCULAR VOLUME 83.4 fl (80.0-96.0); PLATELET COUNT, AUTOMATED 262 10^3/uL (150-450); RED BLOOD COUNT 4.88 10^6/uL (4.00-5.40); WHITE BLOOD COUNT 9.4 10^3/uL (4.0-10.0)
[2023-09-17 17:52] LABS: URIC ACID 3.7 MG/DL (3.1-7.8)
[2023-09-17 17:54] LABS: LDH LACTATE DEHYDROGENASE 159 U/L (120-246)
[2023-09-17 17:55] LABS: ALT/SGPT 11 U/L (7.0-40); AST/SGOT < 8 U/L (<34); BILIRUBIN,TOTAL 0.4 MG/DL (0.3-1.2); CREATININE FOR GFR 0.59 MG/DL (0.55-1.30); GLOMERULAR FILTRATION RATE > 60.0 (>60)
[2023-09-17 18:17] LABS: HEMOGLOBIN A1c 5.2 % (4.0-6.0)
[2023-09-17 18:20] LABS: HIV 1&2 SCREEN NEGATIVE (NEGATIVE)
[2023-09-17 18:29] LABS: HEPATITIS C VIRUS ABY INDEX < 0.02 INDEX (<0.8)
[2023-09-17 18:55] LABS: TOTAL PROTEIN,RANDOM URINE 15.4 MG/DL (0.0-14.0)
[2023-09-17 18:59] LABS: GC DNA AMPLIFICATION NEGATIVE (NEGATIVE)
[2023-09-17 19:00] LABS: CREATININE,RANDOM URINE 179.8 MG/DL
== END ==
LOC: M PLALAB 15:22
PROVIDERS: ATTEND Advanced Practice Midwife
DX: Z34.81 Encounter for supervision of other normal pregnancy, first trimester (principal)

== ENCOUNTER → 2023-12-05 | Outpatient (CLI) | payer OTHER | LOC: M WHC 11:57 | PROVIDERS: ATTEND Obstetrics & Gynecology | DX: Z34.92 Encounter for supervision of normal pregnancy, unspecified, second trimester (principal); Z36.2 Encounter for other antenatal screening follow-up; Z3A.21 21 weeks gestation of pregnancy ==

== ENCOUNTER → 2024-01-09 | Outpatient (CLI) | payer OTHER ==
[2024-01-09 15:53] LABS: HEMATOCRIT 34.9 % (36.0-47.0); HEMOGLOBIN 11.3 g/dl (12.0-15.5); MEAN CORPUSCULAR HEMOGLOBIN 27.8 pg (27.0-33.0); MEAN CORPUSCULAR HGB CONC 32.4 g/dl (32.0-36.5); RED BLOOD COUNT 4.06 10^6/uL (4.00-5.40); WHITE BLOOD COUNT 7.9 10^3/uL (4.0-10.0)
[2024-01-09 16:08] LABS: GLUCOSE CHALLENGE TEST 1 HOUR 140 MG/DL (LESS THAN 140)
[2024-01-09 16:46] LABS: HIV 1&2 SCREEN NEGATIVE (NEGATIVE)
[2024-01-09 16:53] LABS: HEPATITIS C VIRUS ABY INDEX < 0.02 INDEX (<0.8)
[2024-01-09 17:38] LABS: GC DNA AMPLIFICATION NEGATIVE (NEGATIVE)
== END ==
LOC: M PLALAB 12:56
PROVIDERS: ATTEND Obstetrics & Gynecology
DX: Z34.80 Encounter for supervision of other normal pregnancy, unspecified trimester (principal)

== ENCOUNTER → 2024-03-13 | Outpatient (REF) | payer OTHER | LOC: M SFHCWAGY 12:40 | PROVIDERS: ATTEND Specialist | DX: Z34.83 Encounter for supervision of other normal pregnancy, third trimester (principal) ==

== ENCOUNTER → 2024-03-16 | Outpatient (CLI) | payer OTHER | LOC: M WHC 09:03 | PROVIDERS: ATTEND Specialist | DX: O26.899 Other specified pregnancy related conditions, unspecified trimester (principal); R10.9 Unspecified abdominal pain ==

== ENCOUNTER 2024-04-03 08:12 | Inpatient (IN) | payer OTHER ==
[2024-04-03] VITALS (13 sets, daily range): BP systolic 112–142; BP diastolic 55–87
[~2024-04-03] VITALS: Ht 157.5 cm; Wt 87.1 kg
[2024-04-03] MEDS ORDERED: PRENTAB9 PO (08:41)
[2024-04-03] MEDS ORDERED: HOME MED LIST COMPLETE! XX SCH (08:45)
[2024-04-03] MEDS ORDERED: METHYLERGONOVINE MALEATE 0.2MG/ML 1ML VIAL IM PRN (09:20)
[2024-04-03] MEDS ORDERED: CARBOPROST TROMETHAMINE 250 MCG/ML AMP IM PRN (09:20)
[2024-04-03] MEDS ORDERED: OXYTOCIN DRIP 30 UNITS in IV 1 EA IV PRN ×3 (09:20)
[2024-04-03] MEDS ORDERED: OXYTOCIN INJ 10UNITS/ML 1ML VIAL IM PRN (09:20)
[2024-04-03] MEDS ORDERED: OXYTOCIN INJ 10UNITS/ML 1ML VIAL IV PRN (09:20)
[2024-04-03] MEDS ORDERED: TRANEXAMIC ACID INJection 1,000 MG in NS 100 ML IV PRN (09:20)
[2024-04-03] MEDS ORDERED: LIDOCAINE 1% MDV 20ML VIAL INFIL PRN (09:20)
[2024-04-03 09:39] LABS: HEMATOCRIT 31.4 % (36.0-47.0); MEAN CORPUSCULAR HEMOGLOBIN 24.7 pg (27.0-33.0); MEAN CORPUSCULAR HGB CONC 31.8 g/dl (32.0-36.5); MEAN CORPUSCULAR VOLUME 77.5 fl (80.0-96.0); PLATELET COUNT, AUTOMATED 213 10^3/uL (150-450); RED BLOOD COUNT 4.05 10^6/uL (4.00-5.40)
[2024-04-03] MEDS: miSOPROStol 50MCG 1/2 TABLET PO ONE (09:58)
[2024-04-03 10:49] LABS: HEPATITIS C VIRUS ABY INDEX 0.02 INDEX (<0.8)
[2024-04-03] MEDS ORDERED: miSOPROStol 50MCG 1/2 TABLET PO SCH (11:05)
[2024-04-03] MEDS: CALCIUM CARBONATE 500 MG CHEW U/D PO PRN (11:15)
[2024-04-03] MEDS: miSOPROStol 50MCG 1/2 TABLET PO SCH (14:29)
[2024-04-03] MEDS: OXYTOCIN DRIP 30 UNITS in IV 1 EA IV SCH (18:51)
[2024-04-03] MEDS: LR 1,000 ML IV SCH (18:54)
[2024-04-04] VITALS (21 sets, daily range): BP systolic 116–138; BP diastolic 55–80; O2SAT 98–99
[2024-04-04] MEDS ORDERED: LR 500 ML IV PRN (00:45)
[2024-04-04] MEDS ORDERED: diphenhydrAMINE 50MG/ML VIAL IV PRN (00:45)
[2024-04-04] MEDS ORDERED: NALOXONE INJ 0.4MG/1ML VIAL IV PRN (00:45)
[2024-04-04] MEDS ORDERED: ePHEDrine SULFATE 25 MG/5 ML(5MG/ML) SYRINGE IVP PRN (00:45)
[2024-04-04] MEDS ORDERED: EPIDURAL/PCA KEYS XX PRN (00:45)
[2024-04-04] MEDS ORDERED: ONDANSETRON 4MG 2ML VIAL IV PRN ×2 (00:45→02:50)
[2024-04-04] MEDS ORDERED: FENTANYL/ROPIVACAINE/NACL BAG 100 ML EPIDURAL SCH (00:45)
[2024-04-04] MEDS ORDERED: IBUPROFEN 600MG TAB PO PRN (02:50)
[2024-04-04] MEDS ORDERED: CALCIUM CARBONATE 500 MG CHEW U/D PO PRN (02:50)
[2024-04-04] MEDS: OXYTOCIN DRIP 30 UNITS in IV 1 EA IV SCH (02:50)
[2024-04-04] MEDS ORDERED: LR 1,000 ML IV SCH (02:50)
[2024-04-04] MEDS ORDERED: RHOGAM 300MCG (1500IU) INJ IM SCH (02:50)
[2024-04-04] MEDS ORDERED: ACETAMINOPHEN 325 MG TAB PO PRN (02:50)
[2024-04-04] MEDS: DOCUSATE SODIUM 100MG CAPSULE PO PRN (08:20)
[2024-04-04] MEDS: PRENATAL VITAMINS CHEWABLE TABLET PO SCH (08:20)
[2024-04-04] MEDS: ACETAMINOPHEN 500 MG TAB PO PRN (08:21)
[2024-04-04] MEDS: ANUSOL HC CREAM 30GM TOP PRN (08:22)
[2024-04-04] MEDS: DIBUCAINE 1% OINTMENT 30GM TOP PRN (08:22)
[2024-04-04] MEDS: IBUPROFEN 800 MG TAB PO PRN (22:08)
[2024-04-05 05:40] VITALS: BP 130/70; O2SAT 98
[2024-04-05] MEDS ORDERED: IBUP80TA PO (10:01)
[2024-04-05] MEDS ORDERED: ACET-683 PO (10:01)
[2024-04-06] MEDS ORDERED: MEASLES,MUMPS,RUBELLA VACCINE INJ (MMR-II) SC.IMMUN ONE (09:00)
== END 2024-04-05 14:34 | disposition home or self-care (01) | DRG 560 ==
LOC: M LDI 08:12 → M OBS 04-04 05:14
PROVIDERS: ADMIT Obstetrics & Gynecology; ATTEND Obstetrics & Gynecology
PROC: 3E0P7GC Introduction of Other Therapeutic Substance into Female Reproductive, Via Natural or Artificial Opening (ICD-10-PCS; 2024-04-03)
PROC: 10E0XZZ Delivery of Products of Conception, External Approach (ICD-10-PCS; principal; 2024-04-04)
PROC: 0HQ9XZZ Repair Perineum Skin, External Approach (ICD-10-PCS; 2024-04-04)
DX: O70.0 First degree perineal laceration during delivery (principal); Z37.0 Single live birth; Z3A.39 39 weeks gestation of pregnancy